=== PATIENT | female | born 2000 | race Caucasian/White ===

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

== ENCOUNTER 2020-02-13 17:53 | Emergency (ER) | payer OTHER, MEDICAID ==
--- NOTE | 2020-02-13 18:27 | EDM.PDOC ---
ED HPI GENERAL MEDICAL PROBLEM - General Stated Complaint: STABBED L HAND Time Seen by Provider: 02/13/20 18:30 Source of Information: Reports: Patient History Limitations: Reports: No Limitations - History of Present Illness INITIAL COMMENTS - FREE TEXT/NARRATIVE: Patient presented to the ED because she accidentally stabbed the palm of the left hand with the tip of her a knife while cutting a meat at [employer]. This happened at about 1715 today. She is able to extent and flex her fingers without any difficulty. - Related Data Allergies Allergy/AdvReac Type Severity Reaction Status Date / Time No Known Allergies Allergy Verified 07/08/19 10:19 Home Meds: Home Meds Loratadine [Claritin] 10 mg PO BID #10 tab 10/31/19 [Rx] predniSONE [Prednisone] 60 mg PO DAILY 4 Days #12 tablet 10/31/19 [Rx] raNITIdine HCL [Zantac] 150 mg PO BID #8 tablet 10/31/19 [Rx] Past Medical History - Past Health History Medical/Surgical History: Denies Medical/Surgical History HEENT History: Reports: Other (See Below) Other HEENT History: SWOLLEN TONSILS Respiratory History: Reports: Asthma Neurological History: Reports: Migraines Psychiatric History: Reports: Anxiety, Depression Other Psychiatric History: no on any medication as of this time. Endocrine/Metabolic History: Reports: Obesity/BMI 30+ - Past Surgical History HEENT Surgical History: Reports: Tonsillectomy Female Surgical History: Reports: Other (See Below) (Uterine polypectomy) Social & Family History - Family History Family Medical History: Noncontributory Other HEENT Family History: Sjogren's syndrome father - Caffeine Use Caffeine Use: Reports: Soda - Living Situation & Occupation Occupation: Unemployed Review of Systems - Review of Systems Review Of Systems: See Below Constitutional: Reports: No Symptoms Ears: Reports: No Symptoms Nose: Reports: No Symptoms Mouth/Throat: Reports: No Symptoms Respiratory: Reports: No Symptoms Cardiovascular: Reports: No Symptoms GI/Abdominal: Reports: No Symptoms Genitourinary: Reports: No Symptoms Musculoskeletal: Reports: No Symptoms Skin: Reports: No Symptoms ED EXAM, GENERAL - Physical Exam Exam: See Below Exam Limited By: No Limitations General Appearance: Alert, No Apparent Distress Ears: Normal External Exam Nose: Normal Inspection, Normal Mucosa Throat/Mouth: Normal Inspection, Normal Lips Head: Atraumatic, Normocephalic Neck: Normal Inspection, Supple, Non-Tender Respiratory/Chest: No Respiratory Distress, Lungs Clear Cardiovascular: Normal Peripheral Pulses, Regular Rate, Rhythm GI/Abdominal: Normal Bowel Sounds, Soft, Non-Tender Back Exam: Normal Inspection, Full Range of Motion Extremities: Normal Inspection, Normal Range of Motion, Non-Tender ED TRAUMA EXTREMITY PROCEDURES - Laceration/Wound Repair Left Upper Hand Lac/Wound Length In cm: 0.3 Appearance: Superficial Distal NVT: Neuro & Vascular Intact Skin Prep: Chlorhexidine (Hibiciens) Closed With: Steri-Strips Course - Vital Signs Text/Narrative:: see procedure UTD with immunization Departure - Departure Time of Disposition: 18:30 Disposition: Home, Self-Care 01 Condition: Good Clinical Impression: Incised wound - Discharge Information Instructions: Laceration Care, Adult Referrals: Citlali Jose MD [Primary Care Provider] - Additional Instructions: Please read discharge instructions on incised wound Keep wound dry and clean No need to apply an antibiotic ointment The steri strips will eventually fall off Follow up as needed Sepsis Event Note - Focused Exam Date Exam was Performed: 02/13/20 Time Exam was Performed: 18:32
== END 2020-02-13 18:30 | disposition home or self-care (01) ==
LOC: FB.ED 17:53
DX: S61.402A Unspecified open wound of left hand, initial encounter (principal); J45.909 Unspecified asthma, uncomplicated; E66.9 Obesity, unspecified; Z79.899 Other long term (current) drug therapy; W26.0XXA Contact with knife, initial encounter
CPT/HCPCS: 99282

== ENCOUNTER 2020-08-10 19:58 | Emergency (ER) | payer MEDICAID, OTHER ==
[2020-08-10] MEDS ORDERED: Lidocaine 1% 20 ML MDV INFILT ONE (19:59)
[2020-08-10] MEDS ORDERED: Diphtheria,Pertussis(Acell),Tetanus Vaccine 0.5 ML Syringe IM ONE (20:50)
--- NOTE | 2020-08-10 20:52 | EDM.PDOC ---
ED HPI GENERAL MEDICAL PROBLEM - General Chief Complaint: Laceration Stated Complaint: HAND LACERATION Time Seen by Provider: 08/10/20 20:15 Source of Information: Reports: Patient History Limitations: Reports: No Limitations - History of Present Illness INITIAL COMMENTS - FREE TEXT/NARRATIVE: Patient presented to the ED because of a laceration on the palm of her left hand. She was opening a can of beans and the edge of the can cut her hand. She sustained a 2 cm linear laceration at the base of the left 3rd and 4th finger. - Related Data Allergies Allergy/AdvReac Type Severity Reaction Status Date / Time No Known Allergies Allergy Verified 08/10/20 20:49 Home Meds: Home Meds Loratadine [Claritin] 10 mg PO BID #10 tab 10/31/19 [Rx] predniSONE [Prednisone] 60 mg PO DAILY 4 Days #12 tablet 10/31/19 [Rx] raNITIdine HCL [Zantac] 150 mg PO BID #8 tablet 10/31/19 [Rx] Past Medical History - Past Health History Medical/Surgical History: Denies Medical/Surgical History HEENT History: Reports: Other (See Below) Other HEENT History: SWOLLEN TONSILS Respiratory History: Reports: Asthma Neurological History: Reports: Migraines Psychiatric History: Reports: Anxiety, Depression Other Psychiatric History: no on any medication as of this time. Endocrine/Metabolic History: Reports: Obesity/BMI 30+ - Past Surgical History HEENT Surgical History: Reports: Tonsillectomy Female Surgical History: Reports: Other (See Below) (Uterine polypectomy) Social & Family History - Family History Family Medical History: Noncontributory Other HEENT Family History: Sjogren's syndrome father - Tobacco Use Tobacco Use Status *Q: Current Every Day Tobacco User Years of Tobacco use: 7 Packs/Tins Daily: 0.5 - Caffeine Use Caffeine Use: Reports: Soda - Living Situation & Occupation Occupation: Unemployed ED ROS GENERAL - Review of Systems Review Of Systems: See Below Constitutional: Reports: No Symptoms HEENT: Reports: No Symptoms Respiratory: Reports: No Symptoms Cardiovascular: Reports: No Symptoms Endocrine: Reports: No Symptoms GI/Abdominal: Reports: No Symptoms : Reports: No Symptoms Musculoskeletal: Reports: No Symptoms Skin: Reports: No Symptoms, Wound Neurological: Reports: No Symptoms ED EXAM, SKIN/RASH Exam: See Below Exam Limited By: No Limitations General Appearance: Alert, No Apparent Distress Eye Exam: Bilateral Eye: PERRL Ears: Normal External Exam, Normal Canal Nose: Normal Inspection, Normal Mucosa Throat/Mouth: Normal Inspection, Normal Lips, Normal Teeth Head: Atraumatic, Normocephalic Neck: Normal Inspection, Supple, Non-Tender, Full Range of Motion Respiratory/Chest: No Respiratory Distress, Lungs Clear, Normal Breath Sounds Cardiovascular: Normal Peripheral Pulses, Regular Rate, Rhythm, No Edema, No Gallop GI/Abdominal: Normal Bowel Sounds, Soft, Non-Tender, No Organomegaly Back Exam: Normal Inspection, Full Range of Motion ED SKIN PROCEDURES - Laceration/Wound Repair Left Hand Appearance: Superficial Distal NVT: Neuro & Vascular Intact Anesthetic Type: Local Local Anesthesia - Lidocaine (Xylocaine): 1% Plain Local Anesthetic Volume: 2cc Skin Prep: Chlorhexidine (Hibiciens) Closed with: Sutures Lac/Wound length In cm: 2 Suture Size: 3-0 # of Sutures: 5 Suture Type: Nylon, Interrupted Course - Vital Signs Text/Narrative:: Tdap Last Recorded V/S: Last Vital Signs Temp 37.0 C 08/10/20 20:10 Pulse 99 08/10/20 20:10 Resp 18 08/10/20 20:10 BP 118/81 08/10/20 20:10 Pulse Ox 99 08/10/20 20:10 - Orders/Labs/Meds Orders: Active Orders 24 hr Category Date Time Status Vaccines to be Administered [RC] PER UNIT ROUTINE Care 08/10/20 20:50 Active Meds: Medications Discontinued Medications Generic Name Dose Route Start Last Admin Trade Name Cody PRN Reason Stop Dose Admin Diphtheria/Tetanus/Acell Pertussis 0.5 ml 08/10/20 20:50 Boostrix IM 08/10/20 20:51 .ONCE ONE Departure - Departure Time of Disposition: 20:55 Disposition: Home, Self-Care 01 Condition: Good Clinical Impression: Laceration - Discharge Information Instructions: Laceration Care, Adult, [id number] Referrals: PCP,None [Primary Care Provider] - Forms: ED Department Discharge Additional Instructions: Please read discharge instructions on laceration Air dry when you're inside the house, cover it when you're outside Take ibuprofen 800 mg with tylenol 1000 mg every 8 hours as needed for pain Follow up in 10 days for suture removal Sepsis Event Note (ED) - Evaluation Sepsis Screening Result: No Definite Risk - Focused Exam Vital Signs: Vital Signs Temp Pulse Resp BP Pulse Ox 08/10/20 20:10 37.0 C 99 18 118/81 99 - My Orders Last 24 Hours: My Active Orders 08/10/20 20:50 Vaccines to be Administered [RC] PER UNIT ROUTINE - Assessment/Plan Last 24 Hours: My Active Orders 08/10/20 20:50 Vaccines to be Administered [RC] PER UNIT ROUTINE
== END 2020-08-10 21:05 | disposition home or self-care (01) ==
LOC: FB.ED 19:58
DX: S61.412A Laceration without foreign body of left hand, initial encounter (principal); E66.9 Obesity, unspecified; J45.909 Unspecified asthma, uncomplicated; Z23 Encounter for immunization; F17.210 Nicotine dependence, cigarettes, uncomplicated; Z90.49 Acquired absence of other specified parts of digestive tract; Z79.899 Other long term (current) drug therapy; W26.9XXA Contact with unspecified sharp object(s), initial encounter
CPT/HCPCS: 12001; 90471; 90715; 99282; J2001

== ENCOUNTER 2020-11-05 17:42 | Emergency (ER) | payer MEDICAID ==
[2020-11-05] MEDS ORDERED: Sodium Chloride 0.9% 10 ML Syringe FLUSH PRN (17:56)
[2020-11-05] MEDS ORDERED: Sodium Chloride 0.9% 1,000 ML IV SCH (18:00)
[2020-11-05] MEDS ORDERED: Iopamidol 755 Mg/ML 100 ML Bottle IV ONE (18:23)
[2020-11-05] MEDS ORDERED: Ondansetron 4 MG/2 ML SDV IVPUSH STA (18:27)
[2020-11-05] MEDS ORDERED: Ketorolac 30 MG/ML SDV IVPUSH STA (18:27)
--- NOTE | 2020-11-05 18:27 | EDM.PDOC ---
ED HPI GENERAL MEDICAL PROBLEM - General Chief Complaint: Abdominal Pain Stated Complaint: ABD PAIN Time Seen by Provider: 11/05/20 18:00 Source of Information: Reports: Patient History Limitations: Reports: No Limitations - History of Present Illness INITIAL COMMENTS - FREE TEXT/NARRATIVE: Patient presented to the ED because of abdominal pain for 6 weeks which got worse for the past week. The pain is sharp, squeezing, intermittent over the LUQ and RUQ. The pain is 8/10 at worse and associated with nausea, but no vomiting. There is no changes in bowel movement or urinary symptoms. There is no fever, chills, cough/cold. R upper abdomen radiating in to R flank & upper abdoemen Pain Score (Numeric/FACES): 6 - Related Data Allergies Allergy/AdvReac Type Severity Reaction Status Date / Time No Known Allergies Allergy Verified 11/05/20 18:08 Home Meds: Home Meds Acetaminophen [Tylenol Extra Strength] 1 tab PO ASDIRECTED 08/10/20 [History] Past Medical History - Past Health History Medical/Surgical History: Denies Medical/Surgical History HEENT History: Reports: Other (See Below) Other HEENT History: SWOLLEN TONSILS Respiratory History: Reports: Asthma Gastrointestinal History: Reports: GERD PSYCH SOCIAL WORKER History: Reports: Other PSYCH SOCIAL WORKER History: G0 Neurological History: Reports: Migraines Psychiatric History: Reports: Anxiety, Depression, Suicide Attempt Other Psychiatric History: no on any medication as of this time. Endocrine/Metabolic History: Reports: Obesity/BMI 30+ - Infectious Disease History Infectious Disease History: Reports: Novel Coronavirus - Past Surgical History HEENT Surgical History: Reports: Adenoidectomy, Tonsillectomy GI Surgical History: Reports: None Female Surgical History: Reports: Other (See Below) Other Female Surgeries/Procedures: Uterine polyps, removed. Social & Family History - Family History Family Medical History: No Pertinent Family History Other HEENT Family History: Sjogren's syndrome father - Tobacco Use Tobacco Use Status *Q: Current Every Day Tobacco User Years of Tobacco use: 7 Packs/Tins Daily: 0.5 - Caffeine Use Caffeine Use: Reports: Coffee, Energy Drinks, Soda, Tea - Recreational Drug Use Recreational Drug Use: No - Living Situation & Occupation Occupation: Unemployed ED ROS GENERAL - Review of Systems Review Of Systems: See Below Constitutional: Reports: No Symptoms HEENT: Reports: No Symptoms Respiratory: Reports: No Symptoms Cardiovascular: Reports: No Symptoms Endocrine: Reports: No Symptoms GI/Abdominal: Reports: Abdominal Pain, Nausea, Vomiting Skin: Reports: No Symptoms Neurological: Reports: No Symptoms ED EXAM, GI/ABD - Physical Exam Exam: See Below Exam Limited By: No Limitations General Appearance: Alert, No Apparent Distress Ears: Normal External Exam, Normal Canal, Hearing Grossly Normal Nose: Normal Inspection Throat/Mouth: Normal Inspection, Normal Lips Head: Atraumatic, Normocephalic Neck: Normal Inspection, Supple, Non-Tender, Full Range of Motion Respiratory/Chest: No Respiratory Distress, Lungs Clear, Normal Breath Sounds Cardiovascular: Normal Peripheral Pulses, Regular Rate, Rhythm, No Edema, No Gallop, No JVD, No Murmur, No Rub GI/Abdominal Exam: Normal Bowel Sounds, Soft, Other (tenderness over the LUW and RUQ) Back Exam: Normal Inspection, Full Range of Motion Extremities: Normal Inspection, Normal Range of Motion Course - Vital Signs Text/Narrative:: Lbas/Abd-pelvis CT result was discussed with patient NS 1 L bolus Zofran 4 mg IV x1 Toradol 30 mg IV x1 Bentyl 10 mg po x1 Last Recorded V/S: Last Vital Signs Temp 36.4 C 11/05/20 17:45 Pulse 75 11/05/20 19:03 Resp 18 11/05/20 19:03 BP 138/90 11/05/20 19:03 Pulse Ox 98 11/05/20 19:03 - Orders/Labs/Meds Orders: Active Orders 24 hr Category Date Time Status Abdomen Pelvis w Cont [CT] Stat Exams 11/05/20 17:56 Taken Dicyclomine [Bentyl] Med 11/05/20 20:06 Once 10 mg PO ONETIME ONE Sodium Chloride 0.9% [Normal Saline] 1,000 ml Med 11/05/20 18:00 Active IV ASDIRECTED Sodium Chloride 0.9% [Saline Flush] Med 11/05/20 17:56 Active 10 ml FLUSH ASDIRECTED PRN Saline Lock Insert [OM.PC] Routine Oth 11/05/20 17:56 Ordered Medication Orders Sodium Chloride (Normal Saline) 1,000 mls @ 999 mls/hr IV ASDIRECTED QI Last Admin: 11/05/20 18:35 Dose: 999 mls/hr Documented by: DEVANTE Sodium Chloride (Saline Flush) 10 ml FLUSH ASDIRECTED PRN PRN Reason: Keep Vein Open Last Admin: 11/05/20 18:30 Dose: 10 ml Documented by: DEVANTE Labs: Laboratory Tests 11/05/20 11/05/20 11/05/20 Range/Units 17:58 17:58 17:58 WBC 12.6 H (3.0-10.3) x10-3/uL RBC 4.77 (3.60-5.20) x10(6)uL Hgb 12.1 (11.4-15.5) g/dL Hct 38.3 (34.2-48.2) % MCV 80.4 (76.7-100.5) fL MCH 25.4 (23.9-33.9) pg MCHC 31.6 L (31.9-34.8) g/dL RDW 14.2 (12.3-16.5) % Plt Count 441 (151-488) x10(3)uL MPV 8.5 (7.1-12.4) fL Neut % (Auto) 56.7 (30.8-76.2) % Lymph % (Auto) 31.1 (18.4-52.1) % [place] % (Auto) 5.0 (4.4-15.7) % Eos % (Auto) 6.2 (0.6-8.1) % Baso % (Auto) 1.0 (0.2-1.5) % Neut # (Auto) 7.2 H (1.5-6.3) x10-3/uL Lymph # (Auto) 3.9 (1.0-4.4) x10-3/uL [place] # (Auto) 0.6 (0.3-1.0) x10-3/uL Eos # (Auto) 0.8 (0.0-0.8) x10-3/uL Baso # (Auto) 0.1 (0.0-0.1) x10-3/uL Sodium 139 (135-145) mmol/L Potassium 4.0 (3.5-5.3) mmol/L Chloride 102 (100-110) mmol/L Carbon Dioxide 27 (21-32) mmol/L BUN 12 (7-18) mg/dL Creatinine 0.8 (0.55-1.02) mg/dL Est Cr Clr Drug Dosing 92.79 mL/min Estimated GFR (MDRD) > 60 (>60) BUN/Creatinine Ratio 15.0 (9-20) Glucose 98 (80-116) mg/dL Calcium 8.9 (8.6-10.2) mg/dL Total Bilirubin 0.4 (0.1-1.3) mg/dL AST 15 (5-25) IU/L ALT 21 (12-36) U/L Alkaline Phosphatase 86 (56-112) IU/L Total Protein 8.2 H (6.0-8.0) g/dL Albumin 3.9 (3.5-5.2) g/dL Globulin 4.3 g/dL Albumin/Globulin Ratio 0.9 Amylase 43 (25-115) U/L Lipase 72 L (73-393) U/L Urine Color (YELLOW) Urine Appearance (CLEAR) Urine pH (5.0-6.5) Ur Specific [place] (1.010-1.025) Urine Protein (NEGATIVE) mg/dL Urine Glucose (UA) (NORMAL) mg/dL Urine Ketones (NEGATIVE) mg/dL Urine Occult Blood (NEGATIVE) Urine Nitrite (NEGATIVE) Urine Bilirubin (NEGATIVE) Urine Urobilinogen (NEGATIVE) mg/dL Ur Leukocyte Esterase (NEGATIVE) U Hyaline Cast (Auto) (NS) Urine RBC (0-5) Urine WBC (0-5) Ur Squamous Epith Cells (NS,R,O) Urine Bacteria (NS) Urine HCG, Qual (NEGATIVE) 11/05/20 11/05/20 Range/Units 18:00 18:00 WBC (3.0-10.3) x10-3/uL RBC (3.60-5.20) x10(6)uL Hgb (11.4-15.5) g/dL Hct (34.2-48.2) % MCV (76.7-100.5) fL MCH (23.9-33.9) pg MCHC (31.9-34.8) g/dL RDW (12.3-16.5) % Plt Count (151-488) x10(3)uL MPV (7.1-12.4) fL Neut % (Auto) (30.8-76.2) % Lymph % (Auto) (18.4-52.1) % [place] % (Auto) (4.4-15.7) % Eos % (Auto) (0.6-8.1) % Baso % (Auto) (0.2-1.5) % Neut # (Auto) (1.5-6.3) x10-3/uL Lymph # (Auto) (1.0-4.4) x10-3/uL [place] # (Auto) (0.3-1.0) x10-3/uL Eos # (Auto) (0.0-0.8) x10-3/uL Baso # (Auto) (0.0-0.1) x10-3/uL Sodium (135-145) mmol/L Potassium (3.5-5.3) mmol/L Chloride (100-110) mmol/L Carbon Dioxide (21-32) mmol/L BUN (7-18) mg/dL Creatinine (0.55-1.02) mg/dL Est Cr Clr Drug Dosing mL/min Estimated GFR (MDRD) (>60) BUN/Creatinine Ratio (9-20) Glucose (80-116) mg/dL Calcium (8.6-10.2) mg/dL Total Bilirubin (0.1-1.3) mg/dL AST (5-25) IU/L ALT (12-36) U/L Alkaline Phosphatase (56-112) IU/L Total Protein (6.0-8.0) g/dL Albumin (3.5-5.2) g/dL Globulin g/dL Albumin/Globulin Ratio Amylase (25-115) U/L Lipase (73-393) U/L Urine Color Yellow (YELLOW) Urine Appearance Clear (CLEAR) Urine pH 7.0 H (5.0-6.5) Ur Specific [place] 1.015 (1.010-1.025) Urine Protein Negative (NEGATIVE) mg/dL Urine Glucose (UA) Normal (NORMAL) mg/dL Urine Ketones Negative (NEGATIVE) mg/dL Urine Occult Blood Negative (NEGATIVE) Urine Nitrite Negative (NEGATIVE) Urine Bilirubin Negative (NEGATIVE) Urine Urobilinogen Normal (NEGATIVE) mg/dL Ur Leukocyte Esterase Negative (NEGATIVE) U Hyaline Cast (Auto) Few H (NS) Urine RBC 0-5 (0-5) Urine WBC 0-5 (0-5) Ur Squamous Epith Cells Moderate H (NS,R,O) Urine Bacteria Moderate H (NS) Urine HCG, Qual Negative (NEGATIVE) Meds: Medications Generic Name Dose Route Start Last Admin Trade Name Fredoug PRN Reason Stop Dose Admin Sodium Chloride 1,000 mls @ 999 mls/hr 11/05/20 18:00 11/05/20 18:35 Normal Saline IV 999 mls/hr ASDIRECTED QI Administration Sodium Chloride 10 ml 11/05/20 17:56 11/05/20 18:30 Saline Flush FLUSH 10 ml ASDIRECTED PRN Administration Keep Vein Open Discontinued Medications Generic Name Dose Route Start Last Admin Trade Name Freq PRN Reason Stop Dose Admin Iopamidol 100 ml 11/05/20 18:23 11/05/20 19:20 [id number] (76%) IV 11/05/20 18:24 100 ml . DIRECTED ONE Administration Ketorolac Tromethamine 30 mg 11/05/20 18:27 11/05/20 18:35 Toradol IVPUSH 11/05/20 18:28 30 mg NOW STA Administration Ondansetron HCl 4 mg 11/05/20 18:27 11/05/20 18:40 Zofran IVPUSH 11/05/20 18:28 4 mg NOW STA Administration Departure - Departure Time of Disposition: 20:30 Disposition: Home, Self-Care 01 Condition: Good Clinical Impression: Abdominal pain - Discharge Information Instructions: Abdominal Pain, Adult, [id number] Forms: ED Department Discharge Additional Instructions: You might have IBS-irritable bowel syndrome Increase fiber in your diet Take levsin twice daily for 2 weeks and see if this medicine helps Follow up with your doctor is your symptoms persist Sepsis Event Note (ED) - Evaluation Sepsis Screening Result: No Definite Risk - Focused Exam Vital Signs: Vital Signs Temp Pulse Resp BP Pulse Ox 11/05/20 19:03 75 18 138/90 98 11/05/20 17:45 36.4 C 57 L 18 140/80 100 - My Orders Last 24 Hours: My Active Orders 11/05/20 17:56 Abdomen Pelvis w Cont [CT] Stat Sodium Chloride 0.9% [Saline Flush] 10 ml FLUSH ASDIRECTED PRN Saline Lock Insert [OM.PC] Routine 11/05/20 18:00 Sodium Chloride 0.9% [Normal Saline] 1,000 ml IV ASDIRECTED 11/05/20 20:06 Dicyclomine [Bentyl] 10 mg PO ONETIME ONE - Assessment/Plan Last 24 Hours: My Active Orders 11/05/20 17:56 Abdomen Pelvis w Cont [CT] Stat Sodium Chloride 0.9% [Saline Flush] 10 ml FLUSH ASDIRECTED PRN Saline Lock Insert [OM.PC] Routine 11/05/20 18:00 Sodium Chloride 0.9% [Normal Saline] 1,000 ml IV ASDIRECTED 11/05/20 20:06 Dicyclomine [Bentyl] 10 mg PO ONETIME ONE
[2020-11-05] MEDS ORDERED: Dicyclomine 10 MG Cap PO ONE (20:06)
== END 2020-11-05 20:23 | disposition home or self-care (01) ==
LOC: FB.ED 17:42
DX: R10.12 Left upper quadrant pain (principal); R10.11 Right upper quadrant pain; E66.9 Obesity, unspecified; Z68.43 Body mass index [BMI] 50.0-59.9, adult; Z72.0 Tobacco use
CPT/HCPCS: 36415; 74177; 80053; 81001; 81025; 82150; 83690; 85025; 96374; 96375; 99284; A9270; J1885; J2405; J7030; Q9967

== ENCOUNTER 2021-12-24 21:03 | Emergency (ER) | payer MEDICAID ==
[2021-12-24] MEDS ORDERED: Sodium Chloride 0.9% 10 ML Syringe FLUSH PRN (21:25)
[2021-12-24] MEDS ORDERED: Morphine 4 MG/ML VIAL IVPUSH ONE (21:27)
[2021-12-24] MEDS ORDERED: Ondansetron 4 MG/2 ML SDV IVPUSH ONE (21:27)
[2021-12-24] MEDS ORDERED: Sodium Chloride 0.9% 1,000 ML IV SCH (21:30)
[2021-12-24] MEDS ORDERED: Iopamidol 755 MG/ML 150 ML Bottle IV ONE (21:53)
[2021-12-25] MEDS ORDERED: Ondansetron 4 MG/2 ML SDV IVPUSH ONE (00:01)
[2021-12-25] MEDS ORDERED: HYDROmorphone 2 MG/ML SDV IVPUSH STA (00:12)
[2021-12-25] MEDS ORDERED: Ertapenem 1 GM in Sodium Chloride 0.9% 50 ML IV ONE (00:27)
[2021-12-25] MEDS ORDERED: Ertapenem 1 GM Vial ONE (00:32)
== END 2021-12-25 01:02 ==
LOC: FB.ED 21:03
DX: K35.80 Unspecified acute appendicitis (principal); K21.9 Gastro-esophageal reflux disease without esophagitis; J45.909 Unspecified asthma, uncomplicated; F17.210 Nicotine dependence, cigarettes, uncomplicated; E66.9 Obesity, unspecified; Z68.43 Body mass index [BMI] 50.0-59.9, adult; Z90.09 Acquired absence of other part of head and neck
CPT/HCPCS: 36415; 74177; 80053; 81001; 81025; 82150; 83690; 85025; 96365; 96375; 96376; 99285; 99285-25; J1170; J1335; J2270; J2405; J3490; J7030; Q9967

== ENCOUNTER 2022-10-19 23:19 | Emergency (ER) | payer BC ==
[2022-10-19] MEDS ORDERED: Ondansetron 4 MG/2 ML SDV IVPUSH ONE (23:38)
[2022-10-19] MEDS ORDERED: Lactated Ringers 1,000 ML IV SCH (23:45)
== END 2022-10-20 01:15 | disposition home or self-care (01) ==
LOC: FB.ED 23:19
DX: O21.9 Vomiting of pregnancy, unspecified (principal); Z3A.01 Less than 8 weeks gestation of pregnancy
CPT/HCPCS: 96361; 96374; 99283; J2405; J7120